=== PATIENT | female | born 1990 | race Caucasian/White ===

== ENCOUNTER 2019-10-02 13:45 | Outpatient (RCR) | payer OTHER, SELFPAY ==
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
--- NOTE | 2019-10-09 11:18 | PT-OP ANOTE ---
Pt called 10 20 am to cancel today's afternoon appt, not feeling well. W[employer]HOU[employer] ASSOCIATE spoke with patient feeling GI not feeling up to par, is aware of 10/10 appt, will keep us updated if have to cancel otherwise will plan to attend.
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
== END 2020-03-05 12:03 ==
LOC: PHYS 13:45
PROVIDERS: PCP Acupuncturist; Referring Provider Acupuncturist; Visit Provider Acupuncturist
DX: M53.1 Cervicobrachial syndrome (principal); S16.1XXA Strain of muscle, fascia and tendon at neck level, initial encounter; S46.912A Strain of unspecified muscle, fascia and tendon at shoulder and upper arm level, left arm, initial encounter; R29.898 Other symptoms and signs involving the musculoskeletal system; V89.2XXA Person injured in unspecified motor-vehicle accident, traffic, initial encounter
CPT/HCPCS: 97010; 97110; 97140; 97162; 97535

== ENCOUNTER 2019-11-20 10:50 | Emergency (ER) | payer OTHER, SELFPAY ==
[2019-11-20 11:07] VITALS: BP 136/70; PULSE 76; RESP 14; TEMP 36.8; O2SAT 100; BMI 17.4
[2019-11-20 11:41] LABS: Add Manual Diff / Slide Review NO; Basophils Absolute Auto 0 /uL (0-100); Basophils Percent Auto 0.5 % (0-2); Eosinophils Absolute Auto 200 /uL (0-450); Eosinophils Percent Auto 3.7 % (2-4); Hematocrit 44.1 % (36-46); Hemoglobin 14.9 g/dL (12.0-16.0); Lymphocytes Absolute Auto 1500 /uL (1100-4500); Mean Corpuscular HGB Conc 33.8 % (30-36); Mean Corpuscular Hemoglobin 32.2 PG (26-34); Mean Corpuscular Volume 95.3 fL (80-100); Monocytes Absolute Auto 300 /uL (0-900); Monocytes Percent Auto 6.3 % (3-14); Neutrophils Absolute Auto 3300 /uL (1500-7000); Neutrophils Percent Auto 61.5 % (50-75); Platelet Count 283 X10^3/uL (150-400); Red Blood Cell Count 4.63 X10^6/uL (4.0-5.2); Red Cell Distribution Width 12.8 % (11.6-14.8); White Blood Cell Count 5.4 X10^3/uL (4.5-11.0)
--- NOTE | 2019-11-20 11:41 | ED.ABDPAIN ---
HPI - Abdominal Pain <Susana Cornell PA-C - Last Filed: 11/20/19 21:41> General Chief Complaint: Abdominal Pain Stated Complaint: abdominal pain Time Seen by Provider: 11/20/19 11:34 Source: patient Mode of arrival: Ambulatory Limitations: no limitations History of Present Illness HPI narrative: This is a 29-year-old well-appearing female in mild distress 2nd to pain. Who presents with 2 weeks of abdominal pain has been worsening over the last few days, with nausea, and then vomiting this morning; she reports a mild fever a few days ago to over 100. She says that her pain today is less than it has been at times in the past 2 weeks and she is here largely because of the nausea and vomiting which caused her to be concerned for possible appendicitis. She has been having diarrhea for the last 2 weeks, and has had right lower quadrant abdominal pain that has recently been worsening with movement, including walking and with movement of her right leg. This morning she had an extended episode of vomiting, she has been nauseous for the last few days and has not been eating normally. She reports no history of abdominal surgeries, she reports normal periods lasting about 5 days, that have been regular, she has a copper IUD in place, no history of ovarian cysts. She reports distant history of urinary tract infections, but no urinary symptoms currently. She advises she has had over 10 [address] scans and 100 x-rays in her life, and would like to avoid any radiation if possible. 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 Related Data Home Medications Medication Instructions Recorded Confirmed Calcium Carbonate/Vitamin D 1 cap PO Q DAY #0 06/22/11 (#CALCIUM) FOLIC ACID/VIT A/VIT B1/VIT 1 tab PO Q DAY #0 06/22/11 (#MULTIVITAMIN) Fish Oil (#FISH OIL) 1 iu PO Q DAY #0 06/22/11 VITAMIN D 400 iu PO Q DAY #0 06/22/11 Previous Rx's Medication Instructions Recorded ondansetron 4 mg PO Q8H #30 tab 11/20/19 Allergies Allergy/AdvReac Type Severity Reaction Status Date / Time ciprofloxacin [From Cipro] Allergy Severe Hives Verified 11/20/19 11:11 Penicillins Allergy Severe Hives Verified 11/20/19 11:11 Review of Systems <Susana Cornell PA-C - Last Filed: 11/20/19 21:41> Review of Systems Narrative: GENERAL: Denies chills, fatigue, malaise, fever, sweats. HEENT: Denies sinus pain, ear pain, sore throat, difficulty swallowing, dizziness. RESPIRATORY: Denies dyspnea, cough, wheezing, hemoptysis, sputum. CARDIOVASCULAR: Denies chest pain, palpitations, orthopnea, edema, GASTROINTESTINAL: Positive for nausea, vomiting, abdominal pain, diarrhea, negative for constipation, melena, hematemesis, blood in stool. : Denies dysuria, frequency, incontinence, hematuria, urinary retention. MUSCULOSKELETAL: denies weakness, joint pain, or bony pain SKIN: Denies rash, skin lesions, or other NEUROLOGIC: Denies weakness, headache, numbness, change in speech, confusion, seizures, incoordination. PSYCHIATRIC: No concerning psychosocial issues. 12 point review of systems is negative except for those stated above Patient History <Susana Cornell PA-C - Last Filed: 11/20/19 21:41> Medical History (Updated 11/20/19 @ 16:08 by Susana Cornell PA-C) Irritable bowel (Acute) Social History Smoking Status: Never smoker Smoking Status: Never smoker alcohol intake frequency: 0-2 drinks per day Substance Use Type: marijuana Exam <Susana Cornell PA-C - Last Filed: 11/20/19 21:41> Narrative Exam Narrative: GENERAL: 29 year old patient appears stated age. Well-nourished, well-developed patient, in mild distress. HEAD: Atraumatic. Normocephalic. EYES: Pupils equal round and reactive. Extraocular motions intact. No scleral icterus. No injection or drainage. ENT: Nose without bleeding, purulent drainage. Throat without erythema, tonsillar hypertrophy or exudate. Airway patent. NECK: Trachea midline. Non tender CARDIOVASCULAR: Regular rate and rhythm without murmurs, gallops, or rubs. RESPIRATORY: Clear to auscultation. Breath sounds equal bilaterally. No wheezes, rales, or rhonchi. GASTROINTESTINAL: Abdomen diffusely tender, with some guarding, with exquisite tenderness of the right lower quadrant, positive McBurney's point tenderness, positive Rovsing sign, positive obturators sign, nondistended, without rebound or palpable hernia. EXTREMITIES: No edema or joint tenderness. BACK: Nontender without deformity or crepitance. No flank tenderness. NEURO: AOx3. SKIN: No rash or erythema of visible areas Initial Vital Signs Initial Vital Signs: Vital Signs Temperature 98.3 F 11/20/19 11:07 Pulse Rate 76 11/20/19 11:07 Respiratory Rate 14 11/20/19 11:07 Blood Pressure 136/70 11/20/19 11:07 Pulse Oximetry 100 11/20/19 11:07 <Lady Rosa MD - Last Filed: 11/21/19 08:27> Initial Vital Signs Initial Vital Signs: Vital Signs Temperature 98.3 F 11/20/19 11:07 Pulse Rate 76 11/20/19 11:07 Respiratory Rate 14 11/20/19 11:07 Blood Pressure 136/70 11/20/19 11:07 Pulse Oximetry 100 11/20/19 11:07 Course <Susana Cornell PA-C - Last Filed: 11/20/19 21:41> Course Course Narrative: Performed ultrasound due to symptoms very suggestive of appendicitis, labs are unremarkable. Orders Ordered: Discontinued Medications Sodium Chloride (Normal Saline 0.9%) 1,000 mls @ 1,000 mls/hr IV BOLUS ONE Stop: 11/20/19 12:38 Last Infusion: 11/20/19 13:45 Dose: 0 mls/hr Documented by: Admin: 11/20/19 11:42 Dose: 1,000 mls/hr Documented by: FARNAZ Ondansetron HCl (Zofran) 4 mg IV NOW ONE Stop: 11/20/19 11:12 Last Admin: 11/20/19 11:42 Dose: 4 mg Documented by: FARNAZ Reevaluation(s) Reevaluation #1: Re-evaluated patient, she is still well appearing but continues to have pain. Discussed the results so far. Ultrasound was not able to visualize the appendix, but there was no evidence of changes that would be expected with appendicitis, in the right ovary appeared normal and not suspicious for torsion. The patient is very reticent to have additional imaging with CT scan, she wishes to discuss this with her partner who is also standing and has her healthcare provider, she has not established care anywhere here, he is a electron beam machine welder setter. She is considering going home today and monitoring at home and returning if her symptoms worsen or change, versus having a CT scan today for further evaluation. Time: 14:31 Vital Signs Vital signs: Vital Signs - 8 hr 11/20/19 14:00 11/20/19 14:33 11/20/19 16:22 Pulse Rate 61 76 70 Respiratory Rate 20 18 Blood Pressure [Left Arm] 109/55 L 111/59 L 104/53 L Pulse Oximetry 99 97 99 <Lady Rosa MD - Last Filed: 11/21/19 08:27> Orders Ordered: Discontinued Medications Sodium Chloride (Normal Saline 0.9%) 1,000 mls @ 1,000 mls/hr IV BOLUS ONE Stop: 11/20/19 12:38 Last Infusion: 11/20/19 13:45 Dose: 0 mls/hr Documented by: Admin: 11/20/19 11:42 Dose: 1,000 mls/hr Documented by: FARNAZ Ondansetron HCl (Zofran) 4 mg IV NOW ONE Stop: 11/20/19 11:12 Last Admin: 11/20/19 11:42 Dose: 4 mg Documented by: FARNAZ Vital Signs Vital signs: Vital Signs - 8 hr 11/20/19 14:00 11/20/19 14:33 11/20/19 16:22 Pulse Rate 61 76 70 Respiratory Rate 20 18 Blood Pressure [Left Arm] 109/55 L 111/59 L 104/53 L Pulse Oximetry 99 97 99 MDM - Abdominal Pain <Susana Cornell PA-C - Last Filed: 11/20/19 21:41> Differential Diagnosis Differential diagnosis: Likely abdominal pain, acute appendicitis, calculus of kidney, diverticulitis, pancreatitis, small bowel obstruction and other (Mesenteric lymphadenitis) Medical Records Attestation: I reviewed the patient's medical records. Lab Data Attestation: I reviewed the patient's lab results. Result diagrams: 11/20/19 11:35 11/20/19 11:35 Labs: Lab Results 11/20/19 11/20/19 11/20/19 Range/Units 11:35 11:35 11:35 WBC 5.4 (4.5-11.0) X10^3/uL RBC 4.63 (4.0-5.2) X10^6/uL Hgb 14.9 (12.0-16.0) g/dL Hct 44.1 (36-46) % MCV 95.3 (80-100) fL MCH 32.2 (26-34) PG MCHC 33.8 (30-36) % RDW 12.8 (11.6-14.8) % Plt Count 283 (150-400) X10^3/uL Neut % (Auto) 61.5 (50-75) % Lymph % (Auto) 28.0 (25-40) % Bethel % (Auto) 6.3 (3-14) % Eos % (Auto) 3.7 (2-4) % Baso % (Auto) 0.5 (0-2) % Neut # (Auto) 3300 (5897-2060) /uL Lymph # (Auto) 1500 (4874-9843) /uL Bethel # (Auto) 300 (0-900) /uL Eos # (Auto) 200 (0-450) /uL Baso # (Auto) 0 (0-100) /uL PT 12.7 (10.1-12.7) SECONDS INR 1.1 (0.9-1.3) APTT 32 (26.4-36.2) SECONDS Sodium 136 L (137-145) mmol/L Potassium 4.2 (3.4-5.1) mmol/L Chloride 102 (98-107) mmol/L Carbon Dioxide 21 L (22-32) mmol/L BUN 15 (7-17) mg/dL Creatinine 0.76 (0.52-1.04) mg/dL Estimated GFR > 60.0 (>60) mL/min BUN/Creatinine Ratio 19.7 (6-22) Glucose 80 (70-100) mg/dL Calcium 9.5 (8.4-10.2) mg/dL Total Bilirubin 0.6 (0.2-1.3) mg/dL AST 32 (14-36) IU/L ALT 15 (<35) IU/L Alkaline Phosphatase 55 (38-126) U/L Total Protein 8.0 (6.3-8.2) g/dL Albumin 4.7 (3.5-5.0) g/dL Globulin 3.3 (1.7-4.1) g/dL Albumin/Globulin Ratio 1.4 (1.0-2.8) Lipase 193 (23-300) U/L Urine RBC (0-5/HPF) Urine WBC (0-5/HPF) Ur Squamous Epith Cells (0-5/HPF) Urine Bacteria (None) Ur Culture Indicated? 11/20/19 Range/Units 12:28 WBC (4.5-11.0) X10^3/uL RBC (4.0-5.2) X10^6/uL Hgb (12.0-16.0) g/dL Hct (36-46) % MCV (80-100) fL MCH (26-34) PG MCHC (30-36) % RDW (11.6-14.8) % Plt Count (150-400) X10^3/uL Neut % (Auto) (50-75) % Lymph % (Auto) (25-40) % Bethel % (Auto) (3-14) % Eos % (Auto) (2-4) % Baso % (Auto) (0-2) % Neut # (Auto) (5047-2010) /uL Lymph # (Auto) (0208-3406) /uL Bethel # (Auto) (0-900) /uL Eos # (Auto) (0-450) /uL Baso # (Auto) (0-100) /uL PT (10.1-12.7) SECONDS INR (0.9-1.3) APTT (26.4-36.2) SECONDS Sodium (137-145) mmol/L Potassium (3.4-5.1) mmol/L Chloride (98-107) mmol/L Carbon Dioxide (22-32) mmol/L BUN (7-17) mg/dL Creatinine (0.52-1.04) mg/dL Estimated GFR (>60) mL/min BUN/Creatinine Ratio (6-22) Glucose (70-100) mg/dL Calcium (8.4-10.2) mg/dL Total Bilirubin (0.2-1.3) mg/dL AST (14-36) IU/L ALT (<35) IU/L Alkaline Phosphatase (38-126) U/L Total Protein (6.3-8.2) g/dL Albumin (3.5-5.0) g/dL Globulin (1.7-4.1) g/dL Albumin/Globulin Ratio (1.0-2.8) Lipase (23-300) U/L Urine RBC None seen (0-5/HPF) Urine WBC 1-5/hpf (0-5/HPF) Ur Squamous Epith Cells 1-5 /hpf (0-5/HPF) Urine Bacteria Few (2-10) H (None) Ur Culture Indicated? Specimen cultured Point of care testing: Point of Care Testing Test Results Negative Urine Dip Bedside Urine Glucose Negative Bedside Urine Bilirubin - Negative Bedside Urine Ketone +++ 80 Urine Specific Wil[place] 1.030 Bedside Urine Occult Blood - Negative Bedside Urine pH 5.0 Bedside Urine Protein +/- 15 Bedside Urine Urobilinogen - Negative Bedside Urine Nitrite - Negative Bedside Urine Leukocytes +/- 15 Esterase Imaging Data US - abdomen: Attestation: I personally reviewed and interpreted this imaging study as follows: Radiologist's Impression: [place] [address] Ultrasound Report Signed Patient: Morenita Jamison CMR#: [id number] : 1990Acct:[id number] Age/Sex: te of Service: 11/20/19 Loc: ED Accession Number: [id number] Procedure: US abdomen limited Ordering Provider: Susana Cornell P.A-C PROCEDURE: US ABDOMEN LIMITED INDICATIONS: RLQ PAIN, SUSPECT APPENDICITIS TECHNIQUE: Real-time scanning was performed of the abdominal and retroperitoneal organs, with image documentation. COMPARISON: None. FINDINGS: No free abdominal fluid. The appendix is not visualized on the study. No adenopathy. Right ovary demonstrates presence of flow without suspicious solid mass or cysts. IMPRESSION: The appendix is not visualized on this study. No secondary findings for acute appendicitis. However, if there is persistent clinical concern for acute appendicitis, consider further evaluation with CT of the abdomen and pelvis. Dictated by: Huy Arechiga M.D. on 11/20/2019 at 13:23 Approved by: Huy Arechiga M.D. on 11/20/2019 at 13:24 [facility] Narrative Medical decision making narrative: This is a well-appearing 29-year-old female who presented with ongoing abdominal pain of the right lower quadrant which has been intermittently extreme in nature, with some associated nausea recently, and then this morning she vomited, prompting her to come to the emergency department for evaluation for a possible appendicitis. Her exam is very consistent with appendicitis, her labs are unremarkable, and her history is somewhat atypical for an appendicitis given the intermittent nature of her severe pain, and the chronicity being nearly 2 weeks now. Low suspicion for incarcerated hernia based on exam and ultrasound. She declined a CT scan for further evaluation in prefers to continue at home with self-monitoring, and will return and present to the ED if she experiences worsening of her symptoms or new symptoms. She was advised that there are many possible things that can cause abdominal pain besides appendicitis, and that while her labs are normal her exam is very concerning, and a CT scan is recommended. She nonetheless declines due to history of multiple CT scans and preference for minimizing her radiation exposure. Is appropriate, competent and I do believe she will return if her symptoms warrant. She was discharged with a prescription for Zofran. <Lady Rosa MD - Last Filed: 11/21/19 08:27> Lab Data Labs: Lab Results 11/20/19 11/20/19 11/20/19 Range/Units 11:35 11:35 11:35 WBC 5.4 (4.5-11.0) X10^3/uL RBC 4.63 (4.0-5.2) X10^6/uL Hgb 14.9 (12.0-16.0) g/dL Hct 44.1 (36-46) % MCV 95.3 (80-100) fL MCH 32.2 (26-34) PG MCHC 33.8 (30-36) % RDW 12.8 (11.6-14.8) % Plt Count 283 (150-400) X10^3/uL Neut % (Auto) 61.5 (50-75) % Lymph % (Auto) 28.0 (25-40) % Bethel % (Auto) 6.3 (3-14) % Eos % (Auto) 3.7 (2-4) % Baso % (Auto) 0.5 (0-2) % Neut # (Auto) 3300 (8662-0478) /uL Lymph # (Auto) 1500 (2607-3726) /uL Bethel # (Auto) 300 (0-900) /uL Eos # (Auto) 200 (0-450) /uL Baso # (Auto) 0 (0-100) /uL PT 12.7 (10.1-12.7) SECONDS INR 1.1 (0.9-1.3) APTT 32 (26.4-36.2) SECONDS Sodium 136 L (137-145) mmol/L Potassium 4.2 (3.4-5.1) mmol/L Chloride 102 (98-107) mmol/L Carbon Dioxide 21 L (22-32) mmol/L BUN 15 (7-17) mg/dL Creatinine 0.76 (0.52-1.04) mg/dL Estimated GFR > 60.0 (>60) mL/min BUN/Creatinine Ratio 19.7 (6-22) Glucose 80 (70-100) mg/dL Calcium 9.5 (8.4-10.2) mg/dL Total Bilirubin 0.6 (0.2-1.3) mg/dL AST 32 (14-36) IU/L ALT 15 (<35) IU/L Alkaline Phosphatase 55 (38-126) U/L Total Protein 8.0 (6.3-8.2) g/dL Albumin 4.7 (3.5-5.0) g/dL Globulin 3.3 (1.7-4.1) g/dL Albumin/Globulin Ratio 1.4 (1.0-2.8) Lipase 193 (23-300) U/L Urine RBC (0-5/HPF) Urine WBC (0-5/HPF) Ur Squamous Epith Cells (0-5/HPF) Urine Bacteria (None) Ur Culture Indicated? 11/20/19 Range/Units 12:28 WBC (4.5-11.0) X10^3/uL RBC (4.0-5.2) X10^6/uL Hgb (12.0-16.0) g/dL Hct (36-46) % MCV (80-100) fL MCH (26-34) PG MCHC (30-36) % RDW (11.6-14.8) % Plt Count (150-400) X10^3/uL Neut % (Auto) (50-75) % Lymph % (Auto) (25-40) % Bethel % (Auto) (3-14) % Eos % (Auto) (2-4) % Baso % (Auto) (0-2) % Neut # (Auto) (2431-4663) /uL Lymph # (Auto) (0674-5816) /uL Bethel # (Auto) (0-900) /uL Eos # (Auto) (0-450) /uL Baso # (Auto) (0-100) /uL PT (10.1-12.7) SECONDS INR (0.9-1.3) APTT (26.4-36.2) SECONDS Sodium (137-145) mmol/L Potassium (3.4-5.1) mmol/L Chloride (98-107) mmol/L Carbon Dioxide (22-32) mmol/L BUN (7-17) mg/dL Creatinine (0.52-1.04) mg/dL Estimated GFR (>60) mL/min BUN/Creatinine Ratio (6-22) Glucose (70-100) mg/dL Calcium (8.4-10.2) mg/dL Total Bilirubin (0.2-1.3) mg/dL AST (14-36) IU/L ALT (<35) IU/L Alkaline Phosphatase (38-126) U/L Total Protein (6.3-8.2) g/dL Albumin (3.5-5.0) g/dL Globulin (1.7-4.1) g/dL Albumin/Globulin Ratio (1.0-2.8) Lipase (23-300) U/L Urine RBC None seen (0-5/HPF) Urine WBC 1-5/hpf (0-5/HPF) Ur Squamous Epith Cells 1-5 /hpf (0-5/HPF) Urine Bacteria Few (2-10) H (None) Ur Culture Indicated? Specimen cultured Point of care testing: Point of Care Testing Test Results Negative Urine Dip Bedside Urine Glucose Negative Bedside Urine Bilirubin - Negative Bedside Urine Ketone +++ 80 Urine Specific [place] 1.030 Bedside Urine Occult Blood - Negative Bedside Urine pH 5.0 Bedside Urine Protein +/- 15 Bedside Urine Urobilinogen - Negative Bedside Urine Nitrite - Negative Bedside Urine Leukocytes +/- 15 Esterase Discharge Plan Departure Patient Disposition: Home Clinical Impression: Abdominal pain, right lower quadrant, Nausea Discharge Date/Time: 11/20/19 16:29 Instructions: DI for Abdominal Pain-Adult, DI for Nausea -- Adult Activity Restrictions/Additional Instructions: Thank you for letting us to be part of your care today. There is no evidence of an emergent or life threatening illness at this time, but follow up with your doctor in 1-2 days is recommended nonetheless to continue to rule out serious underlying causes of your symptoms. Please call the office for an appointment. Please return to the Emergency Department for any worsening or persistent symptoms. Please take medications as directed. I have provided a paper prescription for Zofran and antinausea medication. As we discussed your labs today looked good, however the ultrasound was not able to visualize your appendix clearly. You have elected not to have a CT scan today and monitor symptoms at home, please return to the emergency department or seek medical care if you have worsening of your current symptoms or new symptoms developing. I recommend that you follow-up with your primary care physician, he did not have a regular primary care physician I have referred due to [facility] and they can help you set one up. Prescriptions: New ondansetron 4 mg tablet,disintegrating 4 mg PO Q8H Qty: 30 RF: 0 No Action Calcium Carbonate/Vitamin D (#CALCIUM) 1 cap PO Q DAY Qty: 0 RF: 0 Fish Oil (#FISH OIL) 1 iu PO Q DAY Qty: 0 RF: 0 FOLIC ACID/VIT A/VIT B1/VIT (#MULTIVITAMIN) 1 tab PO Q DAY Qty: 0 RF: 0 VITAMIN D 400 iu PO Q DAY Qty: 0 RF: 0 Referrals: [facility] [Outside] Judie Yanes [Primary Care Provider] - <Lady Rosa MD - Last Filed: 11/21/19 08:27> Cosign ED Attending Cossandyature Attestation: Phone call to patient 11/21/2019 8:30am to make sure her pain is improving given the questionable diagnosis at discharge yesterday. Message was left on her phone. Again, encouraged to return to the emergency department if her pain is not improving. I was immediately available in the department for consultation throughout this patient's visit. I agree with documentation as above. Lady Rosa MD
[2019-11-20] MEDS: ONDANSETRON 4 MG/2 ML INJ IV (11:42)
[2019-11-20] MEDS: SODIUM CHLORIDE 0.9% 1,000 ML 1000 ML IV (11:42)
[2019-11-20 11:51] LABS: INR 1.1 (0.9-1.3); Prothrombin Time 12.7 SECONDS (10.1-12.7)
[2019-11-20 11:54] LABS: PTT Partial Thromboplastin Tim 32 SECONDS (26.4-36.2)
[2019-11-20 11:55] LABS: Alanine Aminotransferase 15 IU/L (<35); Albumin 4.7 g/dL (3.5-5.0); Albumin Globulin Ratio 1.4 (1.0-2.8); Alkaline Phosphatase 55 U/L (38-126); Aspartate Aminotransferase 32 IU/L (14-36); BUN Creatinine Ratio 19.7 (6-22); Bilirubin Total 0.6 mg/dL (0.2-1.3); Blood Urea Nitrogen 15 mg/dL (7-17); Calcium 9.5 mg/dL (8.4-10.2); Carbon Dioxide 21 mmol/L (22-32); Chloride 102 mmol/L (98-107); Estimated Glomerular Filt Rate > 60.0 mL/min (>60); Globulin 3.3 g/dL (1.7-4.1); Glucose 80 mg/dL (70-100); HEMOLYSIS 36 (0-50); Lipase 193 U/L (23-300); Potassium 4.2 mmol/L (3.4-5.1); Sodium 136 mmol/L (137-145)
--- NOTE | 2019-11-20 12:25 | DI.US.S_ITS ---
PROCEDURE: US ABDOMEN LIMITED INDICATIONS: RLQ PAIN, SUSPECT APPENDICITIS TECHNIQUE: Real-time scanning was performed of the abdominal and retroperitoneal organs, with image documentation. COMPARISON: None. FINDINGS: No free abdominal fluid. The appendix is not visualized on the study. No adenopathy. Right ovary demonstrates presence of flow without suspicious solid mass or cysts. IMPRESSION: The appendix is not visualized on this study. No secondary findings for acute appendicitis. However, if there is persistent clinical concern for acute appendicitis, consider further evaluation with CT of the abdomen and pelvis. Dictated by: Huy Arechiga M.D. on 11/20/2019 at 13:23 Approved by: Huy Arechiga M.D. on 11/20/2019 at 13:24
[2019-11-20 12:30] LABS: RBC Urine None Seen (0-5/HPF)
[2019-11-20 12:41] LABS: Bacteria Urine Few (2-10); Culture Indicated Urine Specimen Cultured; Squamous Epithelial Cell Urine 1-5 /HPF (0-5/HPF); WBC Urine 1-5/HPF (0-5/HPF)
[2019-11-20 13:00] VITALS: BP 105/57; PULSE 61; O2SAT 99
[2019-11-20 14:00] VITALS: BP 109/55; PULSE 61; O2SAT 99
[2019-11-20 14:33] VITALS: BP 111/59; PULSE 76; RESP 20; O2SAT 97
[2019-11-20 16:22] VITALS: BP 104/53; PULSE 70; RESP 18; O2SAT 99
== END 2019-11-20 16:29 | disposition home or self-care (01) ==
PROVIDERS: Emergency Medicine; Emergency Provider Student in an Organized Health Care Education/Training Program; PCP Acupuncturist
DX: R10.31 Right lower quadrant pain (principal); R11.0 Nausea
CPT/HCPCS: 36415; 76705; 80053; 81003; 81015; 81025; 83690; 85025; 85610; 85730; 87077; 87086; 96361; 96374; 99284; J2405

== ENCOUNTER → 2020-06-12 13:28 | Outpatient (CLI) | payer OTHER, MEDICAID, SELFPAY ==
[2020-06-12 15:12] LABS: COVID19 -Nasal RAPID Negative (Negative)
== END ==
PROVIDERS: PCP Acupuncturist; Visit Provider Physician Assistant
DX: J02.9 Acute pharyngitis, unspecified (principal); R52 Pain, unspecified
CPT/HCPCS: 87635

== ENCOUNTER 2021-10-10 14:29 | Emergency (ER) | payer OTHER, MEDICAID, SELFPAY ==
[2021-10-10 14:52] VITALS: BMI 19.1
--- NOTE | 2021-10-10 14:58 | DI.RAD.S_ITS ---
PROCEDURE: XR ANKLE RT MIN 3V INDICATIONS: 2 injuries in 10 days TECHNIQUE: 3 views of the ankle were acquired. COMPARISON: None. FINDINGS: Bones: No fractures or dislocations. Ankle mortise is normally aligned. No suspicious bony lesions. Soft tissues: No tibiotalar joint effusion. Achilles tendon appears normal. IMPRESSION: No visualized acute fracture or dislocation. However, if clinical concern and/or pain persist, short interval imaging followup in 7-10 days is recommended, as occult injury cannot be definitively excluded. Dictated by: Mariah Velasquez M.D. on 10/10/2021 at 15:55 Approved by: Mariah Velasquez M.D. on 10/10/2021 at 15:55
[2021-10-10] MEDS: IBUPROFEN 400 MG TABLET PO (16:04)
[2021-10-10] MEDS: ACETAMINOPHEN 325 MG TABLET 650 MG PO (16:05)
--- NOTE | 2021-10-10 16:17 | ED_ITS ---
HPI - Extremity Injury (Lower) General Chief Complaint: Extremity Injury, Lower Stated Complaint: Possible Broken Rt Ankle/Feeling Sick Time Seen by Provider: 10/10/21 16:01 Source: patient Mode of arrival: Ambulatory History of Present Illness HPI Narrative: 30-year-old female nonsmoker without significant chronic medical problems presents with a chief complaint of a right ankle injury suffered about 10 days ago when she was gardening at night and accidentally inverted her ankle. She has since had pain and swelling with difficulty when ambulating. She had been somewhat improved and then went for a walk recently which seemed to exacerbate her symptoms again. Additionally she has some pain overlying her fibular head. She denies any head neck or back pain. She has no chest pain or shortness of breath and is otherwise well and free of complaint Related Data Home Medications Medication Instructions Recorded Confirmed Calcium Carbonate/Vitamin D 1 cap PO Q DAY #0 06/22/11 (#CALCIUM) FOLIC ACID/VIT A/VIT B1/VIT 1 tab PO Q DAY #0 06/22/11 (#MULTIVITAMIN) Fish Oil (#FISH OIL) 1 iu PO Q DAY #0 06/22/11 VITAMIN D 400 iu PO Q DAY #0 06/22/11 Previous Rx's Medication Instructions Recorded ondansetron 4 mg disintegrating 4 mg PO Q8H #30 tab 11/20/19 tablet Allergies Allergy/AdvReac Type Severity Reaction Status Date / Time ciprofloxacin [From Cipro] Allergy Severe Hives Verified 11/20/19 11:11 Penicillins Allergy Severe Hives Verified 11/20/19 11:11 Review of Systems Review of Systems Narrative: GENERAL: Denies chills, fatigue, malaise, fever, sweats. HEENT: Denies sinus pain, ear pain, sore throat, difficulty swallowing, dizziness. RESPIRATORY: Denies dyspnea, cough, wheezing, hemoptysis, sputum. CARDIOVASCULAR: Denies chest pain, palpitations, orthopnea, edema, GASTROINTESTINAL: Denies nausea, vomiting, abdominal pain, diarrhea, constipation, melena. : Denies dysuria, frequency, incontinence, hematuria, urinary retention. MUSCULOSKELETAL: See HPI SKIN: Denies rash, skin lesions, or other NEUROLOGIC: Denies weakness, headache, numbness, change in speech, confusion, seizures, incoordination. PSYCHIATRIC: No concerning psychosocial issues. 12 point review of systems is negative except for those stated above Patient History Medical History Irritable bowel Social History Smoking Status: Never smoker Smoking Status: Never smoker alcohol intake frequency: 0-2 drinks per day Substance Use Type: marijuana Exam Narrative Exam Narrative: GEN: AOx3 and in mild distress EYES: Pupils are equal, round, and reactive to light and accommodation. Extraoccular muscles are intact bilaterally. There is no subconjunctival hemorrhage or exudate. CHEST: Lungs are clear to auscultation bilaterally and free of wheezes, rales, or rhonchi. Heart rate is regular rhythm, there are no murmurs, clicks, rubs, or gallops. There is no chest wall tenderness. ABD: Abdomen is soft and nontender. There is no guarding or rebound. Bowel sounds are normal in all 4 quadrants. There is no mass or organomegaly. EXT: Full but painful range of motion at right hip, right knee and right ankle. There is no obvious deformity but patient is notably tender overlying the lateral malleolus. No significant swelling and no ligamentous instability. Sensation intact, dorsalis pedis intact, cap refill intact. Additionally patient has pain when palpating fibular head. No knee effusion or ligamentous instability. No joint line tenderness otherwise. SKIN: Warm, pink, and dry. No erythema or rash Initial Vital Signs Initial Vital Signs: Vital Signs Pulse Rate 72 10/10/21 16:34 Course Orders Ordered: ED Orders 10/10/21 14:58 XR ankle RT min 3V Stat 10/10/21 16:06 COVID19 -Nasal swab/Pre-Proc Stat 10/10/21 16:21 XR knee RT 3V Stat Discontinued Medications Acetaminophen (Acetaminophen 325 Mg Tablet) 650 mg PO NOW ONE Stop: 10/10/21 15:58 Last Admin: 10/10/21 16:05 Dose: 650 mg Documented by: FARNAZ Ibuprofen (Ibuprofen 400 Mg Tablet) 400 mg PO NOW ONE Stop: 10/10/21 15:58 Last Admin: 10/10/21 16:04 Dose: 400 mg Documented by: FARNAZ Vital Signs Vital signs: Vital Signs - 8 hr 10/10/21 16:34 10/10/21 17:29 Temperature 98.8 F Pulse Rate 62 Pulse Rate [Right Dorsalis Pedis] 72 Respiratory Rate 16 Blood Pressure 122/78 Pulse Oximetry 98 MDM - Extremity Injury (Lower) Lab Data Labs: Lab Results 10/10/21 Range/Units 16:06 SARS-CoV-2 (PCR) Negative (Negative) Imaging Data Extremity x-ray #1: Radiologist's Impression: [place] [address] XRay Report Signed Patient: Morenita Jamison MR#: [id number] : 1990 Acct:[id number] Age/Sex: 30 / F Date of Service: 10/10/21 Loc: ED Accession Number: [id number] ?? Procedure: XR knee RT 3V Ordering Provider: Tony Melo D.O. PROCEDURE:? XR KNEE RT 3V ? INDICATIONS:? high energy ankle injury, pain over fibular head ? TECHNIQUE:? Three views of the knee were acquired.? ? COMPARISON:? None. ? FINDINGS:? ? Bones:? No fractures or dislocations.? No suspicious bony lesions.? ? Soft tissues:? No joint effusion.? No suspicious soft tissue calcifications.? ? ? IMPRESSION:? No visible fractures. ? ? Dictated by: Elza Uriarte M.D. on 10/10/2021 at 17:08 ? ? Approved by: Elza Uriarte M.D. on 10/10/2021 at 17:09 ? Launch?Image [address] [address] XRay Report Signed Patient: Morenita Jamison MR#: [id number] : 1990 Acct:[id number] Age/Sex: 30 / F Date of Service: 10/10/21 Loc: ED Accession Number: [id number] ?? Procedure: XR ankle RT min 3V Ordering Provider: Tony Melo D.O. PROCEDURE:? XR ANKLE RT MIN 3V ? INDICATIONS:? 2 injuries in 10 days ? TECHNIQUE:? 3 views of the ankle were acquired.? ? COMPARISON:? None. ? FINDINGS:? ? Bones:? No fractures or dislocations.? Ankle mortise is normally aligned.? No suspicious bony lesions.? ? Soft tissues:? No tibiotalar joint effusion.? Achilles tendon appears normal.? ? ? IMPRESSION:? No visualized acute fracture or dislocation. However, if clinical concern and/or pain persist, short interval imaging followup in 7-10 days is recommended, as occult injury cannot be definitively excluded. ? Dictated by: Mariah Velasquez M.D. on 10/10/2021 at 15:55 ? ? Approved by: Mariah Velasquez M.D. on 10/10/2021 at 15:55 ? Discharge Plan Departure Patient Disposition: Home Clinical Impression: Ankle sprain and strain Instructions: DI for Ankle Sprain Activity Restrictions/Additional Instructions: *You have been diagnosed with [right ankle sprain. Your history and physical exam are reassuring and x-ray show no sign of fracture *What to do: *Please continue to take your regular medications as directed. [ ] New medication prescriptions sent to your pharmacy: [ ] [ ] New medication written as a paper prescription [x] No new medications given *Please follow up with your primary care provider in 2-3 days, call for an appointment. Let them know you were seen in the Emergency Department and that we ask that you be seen in follow up. We will electronically transmit a record of today's note if your PCP is in our system *If you do not have a primary care provider please contact the [facility] Resource line at [phone]. They will ask some questions about your medical history and help get you set up with a doctor in the community. *Return to Emergency Department if you should have any new, worsening or concerning symptoms, such as [fever greater than 101 F, shaking chills, worsening pain, persistent vomiting or other bothersome symptoms] Prescriptions: No Action Calcium Carbonate/Vitamin D (#CALCIUM) 1 cap PO Q DAY Qty: 0 0RF Fish Oil (#FISH OIL) 1 iu PO Q DAY Qty: 0 0RF FOLIC ACID/VIT A/VIT B1/VIT (#MULTIVITAMIN) 1 tab PO Q DAY Qty: 0 0RF VITAMIN D 400 iu PO Q DAY Qty: 0 0RF ondansetron 4 mg tablet,disintegrating 4 mg PO Q8H Qty: 30 0RF Referrals: Judie Yanes MD [Primary Care Provider] -
--- NOTE | 2021-10-10 16:21 | DI.RAD.S_ITS ---
PROCEDURE: XR KNEE RT 3V INDICATIONS: high energy ankle injury, pain over fibular head TECHNIQUE: Three views of the knee were acquired. COMPARISON: None. FINDINGS: Bones: No fractures or dislocations. No suspicious bony lesions. Soft tissues: No joint effusion. No suspicious soft tissue calcifications. IMPRESSION: No visible fractures. Dictated by: Elza Uriarte M.D. on 10/10/2021 at 17:08 Approved by: Elza Uriarte M.D. on 10/10/2021 at 17:09
[2021-10-10 16:34] VITALS: PULSE 72
--- NOTE | 2021-10-10 16:36 | PC.NURSE ---
Pt states she has been flying / traveling and has had fever and congestion on and off. Currently easy work of breathing, pink/warm/dry. No acute distress. Taking po well. covid pending.
[2021-10-10 16:47] LABS: COVID19 -Nasal RAPID Negative (Negative)
[2021-10-10 17:29] VITALS: BP 122/78; PULSE 62; RESP 16; TEMP 37.1; O2SAT 98
== END 2021-10-10 17:30 | disposition home or self-care (01) ==
PROVIDERS: Emergency Provider Emergency Medicine; PCP Acupuncturist
DX: S93.401A Sprain of unspecified ligament of right ankle, initial encounter (principal); S96.911A Strain of unspecified muscle and tendon at ankle and foot level, right foot, initial encounter; X50.1XXA Overexertion from prolonged static or awkward postures, initial encounter; Y93.H2 Activity, gardening and landscaping; Z20.822 Contact with and (suspected) exposure to COVID-19
CPT/HCPCS: 73562; 73610; 87635; 99283; C9803

== ENCOUNTER 2022-08-26 18:57 | Emergency (ER) | payer OTHER, MEDICAID, SELFPAY ==
[2022-08-26 19:30] VITALS: BP 130/80; PULSE 99; RESP 18; TEMP 37; O2SAT 98; BMI 19.0
[2022-08-26] MEDS: SODIUM CHLORIDE 0.9% 1,000 ML 1000 ML IV (21:50)
[2022-08-26] MEDS: diphenhydrAMINE 50 MG/ML VIAL 25 MG IV (21:51)
[2022-08-26] MEDS: DEXAMETHASONE 10 MG/ML VIAL IV (21:51)
[2022-08-26] MEDS: METOCLOPRAMIDE 10 MG/2 ML INJ IV (21:51)
[2022-08-26] MEDS: KETOROLAC 30 MG/ML VIAL IV (21:52)
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
[2022-08-26 22:41] VITALS: BP 118/70; PULSE 68; RESP 14; TEMP 36.2; O2SAT 99
== END 2022-08-26 22:45 | disposition home or self-care (01) ==
PROVIDERS: Emergency Provider Emergency Medicine; PCP Acupuncturist
DX: G43.909 Migraine, unspecified, not intractable, without status migrainosus (principal); F07.81 Postconcussional syndrome
CPT/HCPCS: 36415; 96361; 96374; 96375; 99284; J1100; J1200; J1885; J2765